=== PATIENT | male | born 1965 | race Two or more races ===

== ENCOUNTER 2021-12-05 11:56 | Inpatient (IN) | payer OTHER ==
[2021-12-05] MEDS ORDERED: cloNIDine HCL 0.1 MG TABLET ONE (12:42)
[2021-12-05] MEDS ORDERED: MAGNESIUM CITRATE 300 ML BOTTLE PO PRN (13:04)
[2021-12-05] MEDS ORDERED: BISMUTH SUBSALICYLATE 262 MG/15 ML BTL PO PRN (13:04)
[2021-12-05] MEDS ORDERED: ONDANSETRON *ODT* 4 MG TABLET SL PRN (13:04)
[2021-12-05] MEDS ORDERED: BENZOCAINE/MENTHOL (CHLORASEPTIC ) LOZENGE MM PRN (13:04)
[2021-12-05] MEDS ORDERED: MAGNESIUM HYDROX 2400MG/30ML ORAL SUSPENSION 30 ML CUP PO PRN (13:04)
[2021-12-05] MEDS ORDERED: LORazepam 1 MG TABLET PO PRN (13:04)
[2021-12-05] MEDS ORDERED: IBUPROFEN 400 MG TABLET (FP) PO PRN (13:04)
[2021-12-05] MEDS ORDERED: MAG HYDROX/AL HYDROX/SIMETH 30 ML UNIT-DOSE CUP PO PRN (13:04)
[2021-12-05] MEDS ORDERED: ACETAMINOPHEN 325 MG TABLET (FP) PO PRN ×2 (13:04)
[2021-12-05] MEDS ORDERED: LOPERAMIDE HCL 2 MG CAPSULE PO PRN (13:04)
[2021-12-05] MEDS ORDERED: DICYCLOMINE HCL 10 MG CAPSULE PO PRN (13:04)
[2021-12-05] MEDS ORDERED: NICOTINE 10 MG CARTRIDGE (INHALER) IH PRN (13:04)
[2021-12-05 13:15] VITALS: BMI 31.9
[2021-12-05] MEDS: PRENATAL VITAMINS W/ FOLIC ACID TABLET (FP) PO SCH (14:48)
[2021-12-05] MEDS: NICOTINE 14 MG/24 HOURS TOPICAL PATCH TD SCH (14:48)
[2021-12-05] MEDS: hydrOXYzine PAMOATE 25 MG CAPSULE (FP) PO SCH ×3 (14:49→23:21)
[2021-12-05 17:00] LABS: HEMATOCRIT 40.4 % (35.4-49); HEMOGLOBIN 13.4 GM/dL (11.7-16.9); MCH 30.3 pg (25.7-33.7); MCHC 33.2 g/dl (32.0-35.9); MEAN CELL VOLUME 91.4 fl (80-96); MEAN PLT VOLUME 10.4 fl (7.5-11.1); PLATELET COUNT 330 10^3/uL (134-434); RBC 4.42 M/mm3 (4.00-5.60); RDW 12.9 % (11.9-15.9); WHITE BLOOD COUNT 9.9 K/mm3 (4.0-10.0)
[2021-12-05 17:02] LABS: CALCIUM 9.6 mg/dL (8.5-10.1)
[2021-12-05 17:03] LABS: BLOOD UREA NITROGEN 31.1 mg/dL (7-18)
[2021-12-05 17:06] LABS: CREATININE 1.9 mg/dL (0.55-1.3)
[2021-12-05 17:07] LABS: BILIRUBIN,TOTAL 0.5 mg/dL (0.2-1); TOT PROT 7.3 g/dl (6.4-8.2)
[2021-12-05] MEDS: LORazepam 2 MG TABLET PO SCH ×2 (18:27→23:22)
[2021-12-05] MEDS: MELATONIN 5 MG TABLETS PO SCH (23:21)
[2021-12-05] MEDS: THIAMINE HCL 100 MG TABLET (FP) PO SCH (23:21)
[2021-12-06] MEDS: LORazepam 2 MG TABLET PO SCH ×4 (06:33→22:43)
[2021-12-06] MEDS: hydrOXYzine PAMOATE 25 MG CAPSULE (FP) PO SCH ×5 (06:34→22:42)
[2021-12-06] MEDS: METHOCARBAMOL 500 MG TABLET PO PRN (10:11)
[2021-12-06] MEDS: PRENATAL VITAMINS W/ FOLIC ACID TABLET (FP) PO SCH (10:11)
[2021-12-06] MEDS: NICOTINE 14 MG/24 HOURS TOPICAL PATCH TD SCH (10:13)
[2021-12-06] MEDS: LABETALOL HCL 200 MG TABLET (FP) PO SCH ×2 (12:37→22:42)
[2021-12-06] MEDS ORDERED: HYDROCORTISONE 2.5% LOTION - 1 BOTTLE TP PRN (17:34)
[2021-12-06] MEDS ORDERED: HYDROCORTISONE 2.5% TP SCH (22:00)
[2021-12-06] MEDS: THIAMINE HCL 100 MG TABLET (FP) PO SCH (22:44)
[2021-12-06] MEDS: MELATONIN 5 MG TABLETS PO SCH (22:44)
[2021-12-07] MEDS: hydrOXYzine PAMOATE 25 MG CAPSULE (FP) PO SCH ×5 (05:34→22:25)
[2021-12-07] MEDS: LORazepam 1 MG TABLET PO SCH ×4 (05:35→22:24)
[2021-12-07] MEDS: LABETALOL HCL 200 MG TABLET (FP) PO SCH ×2 (11:38→22:25)
[2021-12-07] MEDS: PRENATAL VITAMINS W/ FOLIC ACID TABLET (FP) PO SCH (11:39)
[2021-12-07] MEDS: NICOTINE 14 MG/24 HOURS TOPICAL PATCH TD SCH (11:39)
[2021-12-07] MEDS: amLODIPine BESYLATE 10 MG TABLET (FP) PO SCH (13:25)
[2021-12-07 14:12] LABS: SARS-CoV-2 NAA Not Detected (Not Detected)
[2021-12-07] MEDS: MELATONIN 5 MG TABLETS PO SCH (22:25)
[2021-12-07] MEDS: THIAMINE HCL 100 MG TABLET (FP) PO SCH (22:25)
[2021-12-08] MEDS ORDERED: LORazepam 0.5 MG TABLET PO PRN
[2021-12-08] MEDS: hydrOXYzine PAMOATE 25 MG CAPSULE (FP) PO SCH ×5 (05:55→22:22)
[2021-12-08] MEDS: LORazepam 0.5 MG TABLET PO SCH ×4 (05:55→22:22)
[2021-12-08] MEDS: METHOCARBAMOL 500 MG TABLET PO PRN (10:29)
[2021-12-08] MEDS: NICOTINE 14 MG/24 HOURS TOPICAL PATCH TD SCH (10:29)
[2021-12-08] MEDS: amLODIPine BESYLATE 10 MG TABLET (FP) PO SCH (10:29)
[2021-12-08] MEDS: PRENATAL VITAMINS W/ FOLIC ACID TABLET (FP) PO SCH (10:29)
[2021-12-08] MEDS: HYDROCORTISONE 2.5% LOTION - 1 BOTTLE TP PRN ×2 (13:14→14:04)
[2021-12-08] MEDS: LABETALOL HCL 200 MG TABLET (FP) PO SCH ×2 (13:14→22:22)
[2021-12-08] MEDS: THIAMINE HCL 100 MG TABLET (FP) PO SCH (22:22)
[2021-12-08] MEDS: MELATONIN 5 MG TABLETS PO SCH (22:22)
[2021-12-09] MEDS ORDERED: LORazepam 0.5 MG TABLET PO ONE (05:00)
[2021-12-09] MEDS: hydrOXYzine PAMOATE 25 MG CAPSULE (FP) PO SCH ×2 (06:11→10:31)
[2021-12-09 08:59] VITALS: BP 153/99; PULSE 89; TEMP 98.3
[2021-12-09] MEDS: NICOTINE 14 MG/24 HOURS TOPICAL PATCH TD SCH (10:29)
[2021-12-09] MEDS: amLODIPine BESYLATE 10 MG TABLET (FP) PO SCH (10:31)
[2021-12-09] MEDS: PRENATAL VITAMINS W/ FOLIC ACID TABLET (FP) PO SCH (10:31)
[2021-12-09] MEDS: LABETALOL HCL 200 MG TABLET (FP) PO SCH (10:31)
== END 2021-12-09 11:07 | disposition home or self-care (01) | DRG 775 ==
LOC: YASAS 11:56 → Y6N 13:30
PROVIDERS: ADMIT Allergy & Immunology; ATTEND Allergy & Immunology
PROC: HZ2ZZZZ Detoxification Services for Substance Abuse Treatment (ICD-10-PCS; principal; 2021-12-05)
DX: F10.230 Alcohol dependence with withdrawal, uncomplicated (principal); F10.282 Alcohol dependence with alcohol-induced sleep disorder; F10.24 Alcohol dependence with alcohol-induced mood disorder; I10 Essential (primary) hypertension; R76.11 Nonspecific reaction to tuberculin skin test without active tuberculosis; R79.89 Other specified abnormal findings of blood chemistry; Z87.19 Personal history of other diseases of the digestive system; Z87.891 Personal history of nicotine dependence; Z56.0 Unemployment, unspecified
CPT/HCPCS: 36415; 71046-TC-FY; 80053; 82962; 84520; 85027; 86780; 87811; C9803-CS; U0003; U0005

== ENCOUNTER 2022-07-25 03:30 | Inpatient (IN) | payer OTHER ==
[2022-07-25] MEDS ORDERED: LABETALOL IN NACL, ISO-OSMOTIC 300 MG/300 ML BAG IV SCH (04:30)
[2022-07-25] MEDS ORDERED: cloNIDine HCL 0.1 MG TABLET PO ONE (04:49)
[2022-07-25] MEDS ORDERED: cloNIDine HCL 0.1 MG TABLET ONE (04:53)
[2022-07-25] MEDS ORDERED: hydrALAZINE HCL 20 MG/ML VIAL IVPUSH ONE (05:29)
[2022-07-25] MEDS ORDERED: hydrALAZINE HCL 20 MG/ML VIAL ONE (05:48)
[2022-07-25] MEDS ORDERED: LABETALOL HCL 200 MG TABLET (FP) PO ONE (06:24)
[2022-07-25] MEDS ORDERED: LABETALOL HCL 100 MG TABLET (FP) ONE (06:28)
[2022-07-25] MEDS ORDERED: MAGNESIUM SULF 50% (8.12 MEQ/2 ML-1 GM VIAL) IVPB ONE (07:35)
[2022-07-25 08:03] LABS: BASO % 1.4 % (0-2.0); HEMATOCRIT 38.8 % (35.4-49); HEMOGLOBIN 13.3 GM/dL (11.7-16.9); LYMPH % 21.8 % (8-40); MCHC 34.3 g/dl (32.0-35.9); MEAN CELL VOLUME 87.5 fl (80-96); MEAN PLT VOLUME 9.4 fl (7.5-11.1); MONO % 6.4 % (3.8-10.2); NEUT % 69.4 % (42.8-82.8); PLATELET COUNT 215 10^3/uL (134-434); RBC 4.43 M/mm3 (4.00-5.60); RDW 16.9 % (11.9-15.9); WHITE BLOOD COUNT 7.6 K/mm3 (4.0-10.0)
[2022-07-25 08:16] LABS: BLOOD UREA NITROGEN 29.6 mg/dL (7-18); MAGNESIUM 1.9 mg/dL (1.8-2.4)
[2022-07-25 08:19] LABS: CREATININE 1.6 mg/dL (0.55-1.3)
[2022-07-25] MEDS ORDERED: LORazepam 1 MG TABLET PO PRN (08:32)
[2022-07-25] MEDS ORDERED: MAGNESIUM 1GM/D5W - 1 GM/100 ML IVPB IVPB ONE (08:42)
[2022-07-25] MEDS: amLODIPine BESYLATE 5 MG TABLET (FP) PO SCH (09:04)
[2022-07-25] MEDS ORDERED: HYDROmorphone HCl 2 MG/ML VIAL ONE (09:52)
[2022-07-25] MEDS ORDERED: LORazepam 1 MG TABLET ONE (12:12)
[2022-07-25] MEDS: LORazepam 1 MG TABLET PO SCH ×3 (12:15→22:15)
[2022-07-25] MEDS: HEPARIN NA (PORCINE) 5,000 UNITS/ML 1ML VIAL SQ SCH ×2 (16:56→22:18)
[2022-07-25 19:48] VITALS: BMI 29.5
[2022-07-25] MEDS: hydrALAZINE HCL 20 MG/ML VIAL IVPUSH PRN (20:04)
[2022-07-25] MEDS ORDERED: LABETALOL HCL 5 MG/1 ML (100MG/20 ML VIAL) IVPUSH ONE (22:23)
[2022-07-26] MEDS: LORazepam 1 MG TABLET PO SCH ×4 (05:47→22:06)
[2022-07-26] MEDS: HEPARIN NA (PORCINE) 5,000 UNITS/ML 1ML VIAL SQ SCH ×3 (05:47→22:06)
[2022-07-26] MEDS: hydrALAZINE HCL 20 MG/ML VIAL IVPUSH PRN (07:55)
[2022-07-26 08:07] LABS: BASO % 1.4 % (0-2.0); EOS % 1.5 % (0-4.5); HEMATOCRIT 41.1 % (35.4-49); HEMOGLOBIN 13.5 GM/dL (11.7-16.9); LYMPH % 19.5 % (8-40); MCH 29.2 pg (25.7-33.7); MCHC 32.9 g/dl (32.0-35.9); MEAN CELL VOLUME 88.9 fl (80-96); MEAN PLT VOLUME 9.9 fl (7.5-11.1); MONO % 7.5 % (3.8-10.2); NEUT % 70.1 % (42.8-82.8); PLATELET COUNT 223 10^3/uL (134-434); RBC 4.63 M/mm3 (4.00-5.60); RDW 16.5 % (11.9-15.9); WHITE BLOOD COUNT 7.1 K/mm3 (4.0-10.0)
[2022-07-26 08:12] LABS: ALBUMIN 3.6 g/dl (3.4-5.0); BLOOD UREA NITROGEN 34.1 mg/dL (7-18); CALCIUM 9.3 mg/dL (8.5-10.1); MAGNESIUM 2.2 mg/dL (1.8-2.4)
[2022-07-26 08:15] LABS: CREATININE 1.6 mg/dL (0.55-1.3); PHOSPHOROUS 2.9 mg/dL (2.5-4.9)
[2022-07-26 08:17] LABS: BILIRUBIN,TOTAL 1.2 mg/dL (0.2-1); TOT PROT 6.9 g/dl (6.4-8.2)
[2022-07-26] MEDS: amLODIPine BESYLATE 5 MG TABLET (FP) PO SCH ×2 (09:09→11:02)
[2022-07-26] MEDS: LABETALOL HCL 100 MG TABLET (FP) PO SCH ×2 (11:00→22:04)
[2022-07-26] MEDS ORDERED: amLODIPine BESYLATE 5 MG TABLET (FP) PO ONE (11:40)
[2022-07-26 12:21] LABS: PH,URINE 5.5 (5.0-8.0); URINE APPEARANCE CLEAR; URINE BILIRUBIN NEGATIVE (NEGATIVE); URINE COLOR YELLOW; URINE GLUCOSE (UA) NEGATIVE (NEGATIVE); URINE KETONE NEGATIVE (NEGATIVE); URINE LEUK ESTERASE NEGATIVE (NEGATIVE); URINE NITRITE NEGATIVE (NEGATIVE); URINE PROTEIN NEGATIVE (NEGATIVE); URINE UROBILINOGEN 0.2 mg/dL (0.2-1.0)
[2022-07-26] MEDS: HYDROCHLOROTHIAZIDE 25 MG TABLET (FP) PO SCH (15:42)
[2022-07-26] MEDS ORDERED: SODIUM CHLORIDE 0.45% 1,000 ML IV SCH (18:30)
[2022-07-26] MEDS: THIAMINE HCL 100 MG TABLET (FP) PO SCH (22:04)
[2022-07-27] MEDS: LORazepam 1 MG TABLET PO SCH ×3 (05:46→16:57)
[2022-07-27] MEDS: HEPARIN NA (PORCINE) 5,000 UNITS/ML 1ML VIAL SQ SCH ×2 (05:47→13:08)
[2022-07-27] MEDS: hydrALAZINE HCL 20 MG/ML VIAL IVPUSH PRN ×2 (05:47→17:32)
[2022-07-27] MEDS ORDERED: LABETALOL HCL 200 MG TABLET (FP) PO SCH (08:19)
[2022-07-27 08:32] LABS: BASO % 1.1 % (0-2.0); EOS % 1.5 % (0-4.5); HEMATOCRIT 39.2 % (35.4-49); HEMOGLOBIN 13.1 GM/dL (11.7-16.9); LYMPH % 20.6 % (8-40); MCH 29.5 pg (25.7-33.7); MCHC 33.4 g/dl (32.0-35.9); MEAN CELL VOLUME 88.4 fl (80-96); MEAN PLT VOLUME 9.8 fl (7.5-11.1); NEUT % 68.8 % (42.8-82.8); PLATELET COUNT 217 10^3/uL (134-434); RBC 4.43 M/mm3 (4.00-5.60); RDW 16.4 % (11.9-15.9); WHITE BLOOD COUNT 7.1 K/mm3 (4.0-10.0)
[2022-07-27 08:53] LABS: ALBUMIN 3.6 g/dl (3.4-5.0)
[2022-07-27 08:54] LABS: BLOOD UREA NITROGEN 31.6 mg/dL (7-18); MAGNESIUM 2.1 mg/dL (1.8-2.4)
[2022-07-27 08:56] LABS: CREATININE 1.6 mg/dL (0.55-1.3)
[2022-07-27 08:57] LABS: TOT PROT 6.7 g/dl (6.4-8.2)
[2022-07-27] MEDS: amLODIPine BESYLATE 5 MG TABLET (FP) PO SCH (09:35)
[2022-07-27] MEDS: THIAMINE HCL 100 MG TABLET (FP) PO SCH (09:35)
[2022-07-27] MEDS: HYDROCHLOROTHIAZIDE 25 MG TABLET (FP) PO SCH (09:35)
[2022-07-27] MEDS ORDERED: hydrALAZINE HCL 25 MG TABLET (FP) PO SCH (11:00)
[2022-07-27] MEDS ORDERED: MULTIVITAMINS (DAILY MVI) TABLET (FP) PO SCH (14:30)
[2022-07-27] MEDS ORDERED: FOLIC ACID 1 MG TABLET (FP) PO SCH (14:30)
[2022-07-27 18:42] VITALS: BP 176/97; PULSE 91; RESP 20; TEMP 98
[2022-07-28] MEDS ORDERED: LORazepam 0.5 MG TABLET PO PRN
[2022-07-28] MEDS ORDERED: LORazepam 0.5 MG TABLET PO SCH (05:00)
[2022-07-29] MEDS ORDERED: LORazepam 0.5 MG TABLET PO ONE (05:00)
== END 2022-07-27 18:56 | disposition other institution (70) | DRG 199 ==
LOC: JER 03:30 → JERBED 08:11 → J4W 16:45
PROVIDERS: ADMIT Internal Medicine; ATTEND Internal Medicine
PROC: HZ2ZZZZ Detoxification Services for Substance Abuse Treatment (ICD-10-PCS; principal; 2022-07-25)
DX: I16.1 Hypertensive emergency (principal); F10.239 Alcohol dependence with withdrawal, unspecified; R94.31 Abnormal electrocardiogram [ECG] [EKG]; I12.9 Hypertensive chronic kidney disease with stage 1 through stage 4 chronic kidney disease, or unspecified chronic kidney disease; N18.9 Chronic kidney disease, unspecified
CPT/HCPCS: 36415; 70450-TC; 71045-TC-FY; 76775-TC; 80048; 80053; 81003; 83735; 84100; 84443; 84484; 85025; 85027; 87086; 93005; 93010; 93306-TC; 99282-25; 99285-25; C9803-CS; J1644; U0003; U0005

== ENCOUNTER 2022-07-27 19:44 | Inpatient (IN) | payer OTHER ==
[2022-07-27 20:41] VITALS: BMI 29.9
[2022-07-27] MEDS ORDERED: ACETAMINOPHEN 325 MG TABLET (FP) PO PRN (21:30)
[2022-07-27] MEDS ORDERED: LOPERAMIDE HCL 2 MG CAPSULE PO PRN (21:30)
[2022-07-27] MEDS ORDERED: P-EPHED 60MG/TRIPROLIDI 2.5MG TABLET PO PRN (21:30)
[2022-07-27] MEDS ORDERED: BENZOCAINE/MENTHOL (CHLORASEPTIC ) LOZENGE MM PRN (21:30)
[2022-07-27] MEDS ORDERED: guaiFENesin 200 MG/10 ML 10 ML UNIT-DOSE CUPS PO PRN (21:30)
[2022-07-27] MEDS ORDERED: MAG HYDROX/AL HYDROX/SIMETH 30 ML UNIT-DOSE CUP PO PRN (21:30)
[2022-07-27] MEDS ORDERED: MAGNESIUM HYDROX 2400MG/30ML ORAL SUSPENSION 30 ML CUP PO PRN (21:30)
[2022-07-27] MEDS ORDERED: POLYETHYLENE GLYCOL (HEALTHYLAX) 3350 17 GM PACKET PO PRN (21:30)
[2022-07-27] MEDS: THIAMINE HCL 100 MG TABLET (FP) PO SCH (23:02)
[2022-07-27] MEDS: MELATONIN 5 MG TABLETS PO SCH (23:02)
[2022-07-27] MEDS: IBUPROFEN 400 MG TABLET (FP) PO PRN (23:02)
[2022-07-27] MEDS ORDERED: IBUPROFEN 400 MG TABLET (FP) PO ONE (23:02)
[2022-07-27] MEDS ORDERED: hydrALAZINE HCL 25 MG TABLET (FP) PO ONE (23:25)
[2022-07-27] MEDS ORDERED: LABETALOL HCL 200 MG TABLET (FP) PO ONE (23:30)
[2022-07-28] MEDS: IBUPROFEN 400 MG TABLET (FP) PO PRN (06:39)
[2022-07-28] MEDS: PRENATAL VITAMINS W/ FOLIC ACID TABLET (FP) PO SCH (10:18)
[2022-07-28] MEDS: hydrALAZINE HCL 25 MG TABLET (FP) PO SCH ×2 (12:00→21:52)
[2022-07-28] MEDS: LABETALOL HCL 200 MG TABLET (FP) PO SCH ×2 (12:00→21:53)
[2022-07-28] MEDS: MELATONIN 5 MG TABLETS PO SCH (21:54)
[2022-07-28] MEDS: THIAMINE HCL 100 MG TABLET (FP) PO SCH (21:54)
[2022-07-29] MEDS: LABETALOL HCL 200 MG TABLET (FP) PO SCH ×2 (10:00→21:21)
[2022-07-29] MEDS: PRENATAL VITAMINS W/ FOLIC ACID TABLET (FP) PO SCH (10:00)
[2022-07-29] MEDS: hydrALAZINE HCL 25 MG TABLET (FP) PO SCH ×2 (10:01→21:21)
[2022-07-29 10:25] LABS: PH,URINE 5.5 (5.0-8.0); URINE APPEARANCE CLEAR; URINE BILIRUBIN NEGATIVE (NEGATIVE); URINE COLOR YELLOW; URINE GLUCOSE (UA) NEGATIVE (NEGATIVE); URINE KETONE NEGATIVE (NEGATIVE); URINE LEUK ESTERASE NEGATIVE (NEGATIVE); URINE NITRITE NEGATIVE (NEGATIVE); URINE PROTEIN NEGATIVE (NEGATIVE); URINE UROBILINOGEN 0.2 mg/dL (0.2-1.0)
[2022-07-29] MEDS: THIAMINE HCL 100 MG TABLET (FP) PO SCH (21:21)
[2022-07-29] MEDS: MELATONIN 5 MG TABLETS PO SCH (21:21)
[2022-07-30] MEDS: PRENATAL VITAMINS W/ FOLIC ACID TABLET (FP) PO SCH (10:05)
[2022-07-30] MEDS: hydrALAZINE HCL 25 MG TABLET (FP) PO SCH ×2 (10:05→21:27)
[2022-07-30] MEDS: LABETALOL HCL 200 MG TABLET (FP) PO SCH ×2 (10:06→21:27)
[2022-07-30 12:37] LABS: HEMATOCRIT 37.5 % (35.4-49); HEMOGLOBIN 12.2 GM/dL (11.7-16.9); MCH 29.7 pg (25.7-33.7); MCHC 32.6 g/dl (32.0-35.9); MEAN CELL VOLUME 91.1 fl (80-96); MEAN PLT VOLUME 9.6 fl (7.5-11.1); PLATELET COUNT 239 10^3/uL (134-434); RBC 4.12 M/mm3 (4.00-5.60); RDW 17.2 % (11.9-15.9)
[2022-07-30 12:51] LABS: ALBUMIN 3.4 g/dl (3.4-5.0); BLOOD UREA NITROGEN 29.6 mg/dL (7-18); CALCIUM 8.9 mg/dL (8.5-10.1)
[2022-07-30 12:54] LABS: CREATININE 1.8 mg/dL (0.55-1.3)
[2022-07-30 12:55] LABS: TOT PROT 6.4 g/dl (6.4-8.2)
[2022-07-30 12:56] LABS: BILIRUBIN,TOTAL 0.4 mg/dL (0.2-1)
[2022-07-30] MEDS: amLODIPine BESYLATE 10 MG TABLET (FP) PO SCH (14:50)
[2022-07-30] MEDS: MELATONIN 5 MG TABLETS PO SCH (21:27)
[2022-07-30] MEDS: THIAMINE HCL 100 MG TABLET (FP) PO SCH (21:27)
[2022-07-31] MEDS: amLODIPine BESYLATE 10 MG TABLET (FP) PO SCH (11:29)
[2022-07-31] MEDS: LABETALOL HCL 200 MG TABLET (FP) PO SCH ×2 (11:29→21:43)
[2022-07-31] MEDS: hydrALAZINE HCL 25 MG TABLET (FP) PO SCH ×2 (11:29→21:43)
[2022-07-31] MEDS: PRENATAL VITAMINS W/ FOLIC ACID TABLET (FP) PO SCH (11:29)
[2022-07-31] MEDS: THIAMINE HCL 100 MG TABLET (FP) PO SCH (21:43)
[2022-07-31] MEDS: MELATONIN 5 MG TABLETS PO SCH (21:44)
[2022-08-01] MEDS: hydrALAZINE HCL 25 MG TABLET (FP) PO SCH ×2 (10:53→22:11)
[2022-08-01] MEDS: PRENATAL VITAMINS W/ FOLIC ACID TABLET (FP) PO SCH (10:53)
[2022-08-01] MEDS: LABETALOL HCL 200 MG TABLET (FP) PO SCH ×2 (10:53→22:09)
[2022-08-01] MEDS: amLODIPine BESYLATE 10 MG TABLET (FP) PO SCH (10:53)
[2022-08-01] MEDS: THIAMINE HCL 100 MG TABLET (FP) PO SCH (22:08)
[2022-08-01] MEDS: MELATONIN 5 MG TABLETS PO SCH (22:12)
[2022-08-02] MEDS: LABETALOL HCL 200 MG TABLET (FP) PO SCH (10:10)
[2022-08-02] MEDS: amLODIPine BESYLATE 10 MG TABLET (FP) PO SCH (10:10)
[2022-08-02] MEDS: hydrALAZINE HCL 25 MG TABLET (FP) PO SCH (10:10)
[2022-08-02] MEDS: PRENATAL VITAMINS W/ FOLIC ACID TABLET (FP) PO SCH (10:10)
[2022-08-02 10:11] VITALS: BP 158/84; PULSE 83; RESP 18; TEMP 97.5
== END 2022-08-02 10:30 | disposition home or self-care (01) | DRG 772 ==
LOC: YASAS 19:44 → Y3W 07-28 01:29
PROVIDERS: ADMIT Surgery; ATTEND Psychiatry & Neurology Pain Medicine
PROC: HZ42ZZZ Group Counseling for Substance Abuse Treatment, Cognitive-Behavioral (ICD-10-PCS; principal; 2022-07-28)
DX: F10.20 Alcohol dependence, uncomplicated (principal); F41.9 Anxiety disorder, unspecified; F32.A Depression, unspecified; I12.9 Hypertensive chronic kidney disease with stage 1 through stage 4 chronic kidney disease, or unspecified chronic kidney disease; N18.9 Chronic kidney disease, unspecified; R00.0 Tachycardia, unspecified; Z86.11 Personal history of tuberculosis; Z20.822 Contact with and (suspected) exposure to COVID-19; Z87.820 Personal history of traumatic brain injury; Z87.891 Personal history of nicotine dependence
CPT/HCPCS: 36415; 80053; 81003; 85027; 86780; 87811; C9803-CS; U0003; U0005